=== PATIENT | female | born 1990 | race Caucasian/White ===

== ENCOUNTER 2023-03-29 10:36 | Outpatient (AMB) | payer OTHER, MEDICAID, SELFPAY ==
--- NOTE | 2023-03-29 12:18 | MHC.OFFWIV ---
Intake Vital Signs 03/29/23 12:29 Height 5 ft 2 in Weight 216 lb BMI 39.5 BP 122/90 H Blood Pressure Location Lt brachial Position Sitting Pulse 91 Pulse Source Pulse Oximeter Temp 97.7 F Temp Source Temporal Artery Scan Pulse Oximetry (%) 97 Intake Visit Reasons: EP Cough 3 weeks [phone] Intake Note: pt is here today for cough started 3 weeks ago Allergies ibuprofen [IBUPROFEN] Allergy (Intermediate, Unverified 10/27/21 11:23) SWELLING aspirin [ASPIRIN] Allergy (Mild, Unverified 10/27/21 11:23) ANGIOEDEMA, anaphylaxis Aleve Allergy (Unknown, Uncoded 10/27/21 11:23) anaphylaxis Ibuprofen Allergy (Unknown, Uncoded 10/27/21 11:23) anaphylaxis Motrin Allergy (Unknown, Uncoded 10/27/21 11:23) Anaphylaxis NSAIDS Allergy (Unknown, Uncoded 10/27/21 11:23) Swelling Do you need a note to return to daycare/school/sports/work: No HPI HPI Comments History of Present Illness Details Patient presents to the walk-in today for cough for last 3 weeks Patient states she had been working from home, return to work today and they sent her home due to her cough. Patient states cough is productive of white/yellow sputum, worse at night when she lays down Denies fever, chills, shortness of breath, chest pain, nausea, vomiting, sore throat, earache Endorses nasal congestion with postnasal drip Review of Systems Const All systems reviewed & are unremarkable except as noted in HPI and below Physical Exam Vital Signs: Last Vital Signs Temp 97.7 F 03/29/23 12: Pulse 91 03/29/23 12:29 BP 122/90 H 03/29/23 12:29 Pulse Ox 97 03/29/23 12:29 BMI result Body Mass Index 39.5 General: awake, alert, oriented. Answers questions appropriately. Fully engaged in examination. Skin: warm, dry, intact HEENT: TMs intact bilaterally, without erythema or exudate. Posterior pharynx without erythema or exudate. Sclera without icterus or injection. Cardiac: External chest normal in appearance. Respiratory: +cough. LSCTAB. Abdomen: without gross distension. Neurological: Oriented to person, place, time and situation. Thought process intact. Psychiatric: Appropriate mood and affect. Good judgment and insight. Assessment & Plan Assessment & Plan (1) Upper respiratory tract infection: Code(s): J06.9 - Acute upper respiratory infection, unspecified Plan URI with productive cough Benzonatate 100mg po bid as needed Azithromycin as prescribed Patient declines prednisone, did not tolerate in the past Rest, drink plenty of fluids, tylenol as needed. Recommend taking OTC nasal decongestants or flonase to help with post nasal drip. Follow up with pcp or in clinic for any new or worsening symptoms. Go to ER for shortness of breath, chest pain, palpitations, weakness, dizziness. Medications: New benzonatate 100 mg PO BID PRN 20 caps 0RF cough azithromycin For 250 mg dose pack: take 500 mg today (day 1), then 250 mg for 4 days (days 2-5) PO 6 tabs 0RF Coding Level of Care Code Est Pt Level 4 (73524) Diagnoses Upper respiratory tract infection J06.9
[2023-03-29 12:29] VITALS: BP 122/90; PULSE 91; TEMP 36.5; O2SAT 97; BMI 39.5
== END 2023-03-29 13:40 | disposition home or self-care (01) ==
PROVIDERS: Visit Provider Registered Nurse Emergency
DX: J06.9 Acute upper respiratory infection, unspecified (principal)
CPT/HCPCS: 99213

== ENCOUNTER 2023-04-23 11:43 | Outpatient (AMB) | payer OTHER, MEDICAID, SELFPAY ==
--- NOTE | 2023-04-23 11:48 | A.OFFPC_ITS ---
Vital Signs 04/23/23 11:50 Height 5 ft 2 in Weight 212 lb 8 oz BMI 38.9 BP 110/68 Blood Pressure Location Lt brachial Position Sitting Pulse 82 Pulse Source Pulse Oximeter Pulse Oximetry (%) 99 Oxygen Delivery Method Room Air Intake Visit Reasons: Est Care/Transfer form Skinny/Requesting PE Intake Note: Pt is here to est care [facility] [place] Is last menstrual period known: No Allergies ibuprofen [IBUPROFEN] Allergy (Intermediate, Unverified 04/23/23 12:02) SWELLING aspirin [ASPIRIN] Allergy (Mild, Unverified 04/23/23 12:02) ANGIOEDEMA, anaphylaxis Aleve Allergy (Unknown, Uncoded 04/23/23 12:02) anaphylaxis Ibuprofen Allergy (Unknown, Uncoded 04/23/23 12:02) anaphylaxis Motrin Allergy (Unknown, Uncoded 04/23/23 12:02) Anaphylaxis NSAIDS Allergy (Unknown, Uncoded 04/23/23 12:02) Swelling Medication List - Last Reconciled 04/23/23 by LADONNA Navarro No Known Home Meds Tobacco use date assessed: 04/23/23 Dental Screening Dental Screen Date: 04/23/23 Did you have a dental visit in the last 12 months?: Yes Did you have a dental problem in the last 6 months where you did not have access to dental care?: No Was dental information given to patient?: Patient has dentist HPI HPI Comments History of Present Illness Details Patient is a 33-year-old female here to establish care. She has a past medical history significant for migraines. She states that she has migraines 2-3 times per week in the often interrupts her daily living. She states in the past she used Fioricet with good effect. Denies nausea vomiting, but does have photophobia. Denies shortness of Breath or chest pain. Patient declined influenza immunization and booster immunization. up-to-date on other immunizations. [facility] for Pap [facility]. Will get results [facility] Surgical History H/O: Family History Mother Diabetes Cervical cancer Maternal Grandmother Diabetes Social History Housing: Other Patient Tobacco Use Status: Never used Tobacco e-Cigarette/Vaping Use: Never Used Second Hand Smoke Exposure: No service: No Current occupational status: employed Current occupation: [employer] Current occupational exposures/hazards: No Cognitive needs: No Hearing needs: No Vision needs: No Questionnaire PHQ-9 Over the last 2 weeks, how often have you been bothered by any of the following problems? 1. Little interest or pleasure in doing things: several days 2. Feeling down, depressed, or hopeless: several days 3. Trouble falling or staying asleep, or sleeping too much: several days 4. Feeling tired or having little energy: several days 5. Poor appetite or overeating: more than half the days 6. Feeling bad about yourself - or that you are a failure or have let yourself or your family down: several days 7. Trouble concentrating on things, such as reading the newspaper or watching television: several days 8. Moving or speaking so slowly that other people could have noticed. Or the opposite - being so fidgety or restless that you have been moving around a lot more than usual: several days 9. Thoughts that you would be better off or of hurting yourself in some way: not at all Total score: 9 Depression Screening Interpretation: Negative Depression Screening Done: Yes 53956 - PHQ-9 Billing: Yes Source: Developed by Drs. Jeremiah Dumont, Jennifer Dunlap, Quoc Costa and colleagues, with an educational darlene from [employer]. Thrive Questionnaire Date Thrive assessed: 04/23/23 I am a: Patient What is your living situation today?: I have a steady place to live Within the past 12 months, did the food you bought not last and you didn't have the money to get more?: Never true Within the past 12 months, did you worry whether your food would run out before you got money to buy more?: Never true Do you have trouble paying for medicines?: No Do you have trouble getting transportation to medical appointments?: No Do you have trouble paying your heating and electricity bill?: No Do you have trouble taking care of your child, family member or friend?: No Do you have trouble with day-to-day activities such as bathing, preparing meals, shopping, managing finances, etc.?: No Are you currently unemployed and looking for a job?: No Are you interested in more education?: No THRIVE Score: 0 AUDIT C Alcohol Use Questionnaire (AUDIT-C) 1. How often do you have a drink containing alcohol?: Monthly or less 2. How many drinks containing alcohol do you have on a typical day when you are drinking?: 1 or 2 3. How often do you have six or more drinks on one occasion?: Never Total Score: 1 SUKHDEEP-7 AMB Questionnaire SUKHDEEP-7 Date SUKHDEEP - 7 assessed: 04/23/23 Feeling nervous, anxious, or on edge: 3 = Nearly every day Not being able to stop or control worryin = More than half the days Worrying too much about different things: 2 = More than half the days Trouble relaxin = More than half the days Being so restless that it is hard to sit still: 2 = More than half the days Becoming easily annoyed or irritable: 3 = Nearly every day Feeling afraid as if something awful might happen: 0 = Not at all Total SUKHDEEP-7 score (0-4 normal; 5-9 mild; 10-14 moderate; 15-21 severe): 14 Source: Developed by Drs. Jeremiah Dumont, Jennifer Dunlap, Quoc Costa and colleagues, with an educational darlene from [employer]. SUKHDEEP-7 Assessment Billing SUKHEDEP-7 Assessment Tool: SUKHDEEP-7 Assessment 84983 Review of Systems Const Details: Constitutional : No Weight loss, No Fever, No Chills, No Fatigue, No Malaise ENT/Mouth : No sore throat, No Rhinorrhea Eyes: No Eye Pain, No Swelling, No Redness Cardiovascular : No Chest Pain, No SOB, No Dyspnea on Exertion, No Orthopnea, No Edema, No Palpitations Respiratory : No Cough, No Sputum, No Wheezing Gastrointestinal : No Nausea, No Vomiting, No Diarrhea, No Constipation, No abdominal Pain, No Hematochezia, No Melena Genitourinary : No Dysuria, No Urinary Frequency, No Hematuria, Musculoskeletal : No joint pain, No Myalgias, No Joint Swelling Skin : No Skin Lesions, No rash Neuro : No Weakness, No Numbness, No Dizziness, Admits frequent migraines. Psych : No Anxiety/Panic, No Depression Heme/Lymph: No Bruising, No Bleeding,No Lymphadenopathy Endocrine : No Polyuria, No Polydipsia All other systems reviewed and are negative Physical exam (Primary Care) Vital Signs: Last Vital Signs Pulse 82 04/23/23 11:50 BP 110/68 04/23/23 11:50 Pulse Ox 99 04/23/23 11:50 Oxygen Delivery Method Room Air 04/23/23 11:50 BMI result Body Mass Index 38.9 Tobacco/Smoking Status: Tobacco use Status Tobacco use date assessed 04/23/23 04/23/23 11:58 Patient Tobacco Use Status Never used Tobacco 04/23/23 11:58 e-Cigarette/Vaping Use Never Used 04/23/23 11:58 Depression Screening Interpretation: Negative Const Other: Appearance: Alert.? Oriented X3.? No acute distress.? Head: Normocephalic, atraumatic, Eyes: Pupils equal, round and reactive to light.? Neck: Normal inspection.? Neck supple.? CVS: Normal heart rate and rhythm.? Pulses normal.? Respiratory: No respiratory distress.? Breath sounds normal.? Neuro: Oriented X 3.? No motor deficit.? No sensory deficit. CN 2-12 intact Assessment and Plan Assessment & Plan (1) Migraines: Comment: Patient has frequent migraines, 2-3 episodes per week. She is not taking any medications. She states she had good success with your set in the past will order. Will also order magnesium supplement as prophylactic treatment. Patient has been instructed to inform the office if symptoms do not improve over the next 2-3 weeks Code(s): G43.909 - Migraine, unspecified, not intractable, without status migrainosus Qualifiers: Migraine type: unspecified Status migrainosus presence: without status migrainosus Intractability: not intractable Qualified Code(s): G43.909 - Migraine, unspecified, not intractable, without status migrainosus Plan: Patient has follow-up appointment (2) Insomnia: Comment: Patient states she sometimes has trouble getting to sleep due to busy life schedule not being able to slow down. Will give hydroxyzine to be taken p.r.n. Code(s): G47.00 - Insomnia, unspecified Qualifiers: Insomnia type: unspecified Qualified Code(s): G47.00 - Insomnia, unspecified (3) Obesity (BMI 30-39.9): Comment: Patient would like to improve on her BMI. Will refer to community nurse navigation for dietary and weight the loss counseling. Code(s): E66.9 - Obesity, unspecified Plan: Will follow-up after community nurse navigation appointment. Plan Patient has physical in 3 months Orders: Orders Lipid Panel Today Z13.220 - Encounter for screening for lipoid disorders UA CC w/rflx Micro + Cult Today Z13.89 - Encounter for screening for other disorder TSH reflex Free T4 Today Z13.29 - Encounter for screening for other suspected endocrine disorder Complete Blood Count Auto Diff Today Z13.0 - Encounter for screening for diseases of the blood and blood-forming organs and certain disorders involving the immune mechanism Hemoglobin A1c Today Z13.1 - Encounter for screening for diabetes mellitus Comprehensive Met. Panel Today Z91.89 - Other specified personal risk factors, not elsewhere classified Magnesium Today G43.909 - Migraine, unspecified, not intractable, without status migrainosus Vitamin D 25-OH (D2 and D3) Today Z13.21 - Encounter for screening for nutritional disorder Vitamin B12 Today Z13.21 - Encounter for screening for nutritional disorder Vitamin B6 Today Z13.21 - Encounter for screening for nutritional disorder Thyroid Peroxidase Antibodies Today Z13.29 - Encounter for screening for other suspected endocrine disorder Referrals Nurse Navigator Referral Z71.3 - Dietary counseling and surveillance Medications: New magnesium oxide 400 mg PO DAILY 90 tabs 0RF hydroxyzine HCl 25 mg PO BEDTIME PRN 30 tabs 0RF insomnia ruhhxcufpz-llgkywykpfhwj-gqpz 50-300-40 mg (Fioricet) 1 cap PO Q6H PRN 30 caps 0RF pain Review Flu Vaccine not done: patient reason Coding Level of Care Code Est Pt Level 3 (67890) Diagnoses Migraine without status migrainosus, not intractable, unspecified migraine type G43.909 Migraine type: unspecified Status migrainosus presence: without status migrainosus Intractability: not intractable Insomnia, unspecified type G47.00 Insomnia type: unspecified Obesity (BMI 30-39.9) E66.9 Additional Codes SUKHDEEP-7 Assessment Billing - SUKHDEEP-7 Assessment Tool: SUKHDEEP-7 Assessment 33302 ([id number]) Time Spent (min) 30
[2023-04-23 11:50] VITALS: BP 110/68; PULSE 82; O2SAT 99; BMI 38.9
== END 2023-04-23 12:30 | disposition home or self-care (01) ==
PROVIDERS: Visit Provider Nurse Practitioner Primary Care
DX: G43.909 Migraine, unspecified, not intractable, without status migrainosus (principal); G47.00 Insomnia, unspecified; E66.9 Obesity, unspecified; Z68.38 Body mass index [BMI] 38.0-38.9, adult
CPT/HCPCS: 99214

== ENCOUNTER 2023-04-30 07:51 | Outpatient (REF) | payer OTHER, SELFPAY ==
[2023-04-30 11:19] LABS: MANUAL DIFF FLAG NO
[2023-04-30 11:33] LABS: Basophils Percent Auto 0.6 % (0-2); Eosinophils Absolute Auto 0.1 X10*3/uL (0.0-0.4); Eosinophils Percent Auto 1.6 % (0-4); Hematocrit 39.3 % (37.0-47.0); Hemoglobin 12.8 g/dl (12.0-16.0); Imm Gran Abs Auto 0.01 X10*3/uL (0.00-0.03); Imm Gran Pct Auto 0.2 % (0.0-0.4); Lymphocytes Absolute Auto 1.9 X10*3/uL (1.2-4.9); Lymphocytes Percent Auto 29.6 % (20-40); Mean Corpuscular HGB Conc 32.6 g/dl (31.0-35.0); Mean Corpuscular Hemoglobin 29.4 pg (27.0-33.0); Mean Corpuscular Volume 90.3 fL (80.0-98.0); Mean Platelet Volume 11.2 fL (9.4-12.3); Monocytes Absolute Auto 0.4 X10*3/uL (0.1-1.2); Monocytes Percent Auto 6.6 % (2-11); Neutrophils Absolute Auto 3.8 x10*3/uL (2.0-8.3); Neutrophils Percent Auto 61.4 % (45-73); Platelet Count 272 X10*3/uL (160-400); Red Blood Count 4.35 X10*6/uL (4.20-5.50); Red Cell Distribution Width 13.4 % (11.0-16.0); White Blood Count 6.2 X10*3/uL (4.8-10.8)
[2023-04-30 11:42] LABS: Estimated Average Glucose 111 mg/dL; Hemoglobin A1c % 5.5 % (<6.0)
[2023-04-30 11:44] LABS: Alanine Aminotransferase 23 U/L (0-31); Albumin Level 4.1 g/dL (3.5-5.0); Alkaline Phosphatase 53 U/L (39-117); Anion Gap 11 (12-20); Aspartate Amino Transferase 15 U/L (5-31); Bilirubin Total 0.7 mg/dL (0.0-1.0); Blood Urea Nitrogen 12 mg/dL (9-16); Calcium 9.4 mg/dL (8.4-10.2); Carbon Dioxide 30 mmol/L (22-29); Chloride 105 mmol/L (96-108); Cholesterol 167 mg/dL (<200); Estimated Glomerular Filt Rate > 60; Glucose Random 103 mg/dL (60-115); HDL Cholesterol 53 mg/dL (>40); LDL Cholesterol Calculated 96 mg/dL (<100); Magnesium 1.7 mg/dL (1.6-2.6); Potassium 3.9 mmol/L (3.3-5.1); Sodium 142 mmol/L (135-145); Total Protein 7.5 g/dL (6.5-8.0); Triglycerides 93 mg/dL (<150)
[2023-04-30 11:58] LABS: Appearance Urine Cloudy; Color Urine Dark Yellow; Glucose Urine UA Negative (Negative); Leukocyte Esterase Urine Negative (Negative); Nitrite Urine Negative (Negative); Specific Gravity - Urine >= 1.030 (1.005-1.025); UMIC TRIGGER UACC YES; Urine Blood Trace (Negative); Urine Ketones Negative (Negative); Urine Protein Negative (Neg-Trace)
[2023-04-30 11:59] LABS: Vitamin B12 1407 pg/mL (200-900)
[2023-04-30 12:05] LABS: Bacteria Urine 2+ (None Seen); Hyaline Casts Urine 0-2 /LPF (0-2); WBC Urine 0-5 /HPF (0-5)
[2023-04-30 12:08] LABS: TSH reflex Free T4 1.32 uIU/mL (0.32-4.0)
[2023-05-03 12:52] LABS: Thyroid Peroxidase Antibodies <1 IU/mL (<9)
[2023-05-04 17:47] LABS: Vitamin D 25-OH, D2 <4 ng/mL; Vitamin D 25-OH, D3 19 ng/mL; Vitamin D 25-OH, Total 19 ng/mL (30-100)
[2023-05-05 14:13] LABS: Vitamin B6 48.6 ng/mL (2.1-21.7)
== END 2023-04-30 07:52 | disposition home or self-care (01) ==
LOC: HO.HMGCLDS 07:51
PROVIDERS: PCP Nurse Practitioner Primary Care; Visit Provider Nurse Practitioner Primary Care
DX: G43.909 Migraine, unspecified, not intractable, without status migrainosus (principal); Z13.29 Encounter for screening for other suspected endocrine disorder; Z13.0 Encounter for screening for diseases of the blood and blood-forming organs and certain disorders involving the immune mechanism; Z13.1 Encounter for screening for diabetes mellitus; Z13.220 Encounter for screening for lipoid disorders; Z91.89 Other specified personal risk factors, not elsewhere classified; Z13.21 Encounter for screening for nutritional disorder; Z13.89 Encounter for screening for other disorder
CPT/HCPCS: 36415; 80053; 80061; 81001; 82306; 82607; 83036; 83735; 84207; 84443; 85025; 86376

== ENCOUNTER 2024-02-08 10:10 | Outpatient (AMB) | payer OTHER, SELFPAY ==
--- NOTE | 2024-02-08 11:04 | AM.OFFWIN_ITS ---
Intake Vital Signs 02/08/24 11:05 Height 5 ft 2 in Weight 207 lb 4 oz BMI 37.9 BP 120/78 Blood Pressure Location Lt brachial Position Sitting Pulse 121 H Pulse Source Pulse Oximeter Temp 97.6 F Temp Source Oral Pulse Oximetry (%) 95 Oxygen Delivery Method Room Air Intake Visit Reasons: EP Migraine/throat Intake Note: Patient here for migraine and sore throat, chills and body aches which started about 2 days ago. Patient Tobacco Use Status: Never used Tobacco Allergies ibuprofen [IBUPROFEN] Allergy (Intermediate, Unverified 02/08/24 11:12) SWELLING aspirin [ASPIRIN] Allergy (Mild, Unverified 02/08/24 11:12) ANGIOEDEMA, anaphylaxis Aleve Allergy (Unknown, Uncoded 02/08/24 11:12) anaphylaxis Ibuprofen Allergy (Unknown, Uncoded 02/08/24 11:12) anaphylaxis Motrin Allergy (Unknown, Uncoded 02/08/24 11:12) Anaphylaxis NSAIDS Allergy (Unknown, Uncoded 02/08/24 11:12) Swelling Do you need a note to return to daycare/school/sports/work: No HPI HPI Comments History of Present Illness Details History The patient is a 33-year-old female presenting with symptoms of illness, including sore throat, migraine, and possible strep throat. She reports waking up feeling sick today, with a migraine that began early the previous day. The migraine is typically managed with prescription medication due to her NSAID allergy, but she currently lacks access to her prescribed medication, Fioricet. The patient also experiences sore throat, ear pain, and generalized body aches. She reports feeling extremely cold but is uncertain about the presence of a fever. There is a noted absence of cough, and she denies any other sick contacts at home. The patient states she is also prone to yeast infections following antibiotic therapy. There is a specific sensitivity to antibiotics that has resulted in recurrent yeast infections for which she has previously taken fluconazole. Physical Exam General: Cooperative, healthy appearing, comfortable and no acute distress Orientation/consciousness: Patient oriented x3 Limitations: No limitations Head: Normal to inspection Ears: Hearing grossly normal bilaterally, external ears normal and TM's erythematous bilaterally Nose: Normal external nose present, Normal nares present and No nasal discharge present Face and sinus: Normal facial exam and Yes sinuses nontender Mouth: Normal oral and palatal mucosa present and moist mucous membranes Throat: Yes tonsils normal, Yes uvula midline. Posterior oropharynx erythema with exudates Eyes: Appearance normal, both eyes and all related structures, but patient reports eye pain Neck: Normal visual inspection Respiratory: Normal respiratory effort, able to speak in complete sentences, no respiratory distress, not tachypneic, no tripod positioning and no use of accessory muscles Skin: No rashes or lesions noted Neuro: Patient oriented x3 Extremities: Normal to inspection and Yes no clubbing, cyanosis or edema PFSH Surgical History H/O: Family History Mother Diabetes Cervical cancer Maternal Grandmother Diabetes Social History Housing: Other Patient Tobacco Use Status: Never used Tobacco e-Cigarette/Vaping Use: Never Used Second Hand Smoke Exposure: No service: No Current occupational status: employed Current occupation: [employer] Current occupational exposures/hazards: No Cognitive needs: No Hearing needs: No Vision needs: No Review of Systems Const All systems reviewed & are unremarkable except as noted in HPI and below Physical Exam Vital Signs: Last Vital Signs Temp 97.6 F 02/08/24 11:05 Pulse 121 H 02/08/24 11:05 BP 120/78 02/08/24 11:05 Pulse Ox 95 02/08/24 11:05 Oxygen Delivery Method Room Air 02/08/24 11:05 BMI result Body Mass Index 37.9 Assessment & Plan Assessment & Plan (1) Strep pharyngitis: Code(s): J02.0 - Streptococcal pharyngitis Plan: Plan 1. Streptococcal Pharyngitis: Rapid strep positive. Prescribe Augmentin amoxicillin/clavulanate to be taken orally twice daily for seven days to treat the streptococcal pharyngitis. Recommend the use of throat numbing spray for symptomatic relief, with the consideration of popsicles for soothing the throat, ensuring adequate electrolyte intake to prevent dehydration. 2. Migraine: Refill Fioricet to manage acute migraine symptoms. The prescription refill was sent to the pharmacy. 3. Recurrent Yeast Infection: sent diflucan rx The patient is advised to stay home from work until completing two days of antibiotic therapy due to the contagious nature of the condition. All prescripti ons will be forwarded to the pharmacy for processing. Patient was informed and verbally consented to the use of an ambient scribe for clinic note documentation during this visit Medications: New fluconazole may repeat second dose 72 hrs after first dose if symptoms persist 150 mg PO Q3D 2 tabs 0RF 2 days amoxicillin-pot clavulanate 875-125 mg 1 tab PO Q12H 14 tabs 0RF Refilled twddkaflbc-bbqgowdetshbr-pcei 50-300-40 mg (Fioricet) 1 cap PO Q6H PRN 30 caps 0RF pain Coding Level of Care Code Est Pt Level 4 (21712) Diagnoses Strep pharyngitis J02.0
[2024-02-08 11:05] VITALS: BP 120/78; PULSE 121; TEMP 36.4; O2SAT 95; BMI 37.9
--- OUTSIDE RECORDS SUMMARY | 2024-02-09 19:45 | XMS_ITS ---
Author Name [facility] Organization Unknown History of Medication Use Medication Directions Dispensed Refills Start Date End Date Stat methylPREDNISolone (MEDROL DOSEPAK) 4 MG tablet follow package directions 10/15/2023 active benzonatate (TESSALON) 200 MG capsule Take 1 capsule (200 mg total) by mouth 3 (three) times a day as needed for cough. 12/16/2021 active amoxicillin (AMOXIL) 875 MG tablet Take 1 tablet (875 mg total) by mouth 2 (two) times a day. 12/16/2021 active No Medications Taken No Medications Taken 01/22/2023 active methylPREDNISolone (MEDROL DOSEPAK) 4 MG tablet follow package directions 12/16/2021 active lidocaine (XYLOCAINE) 2 % solution Take 5 mL by mouth 4 (four) times a day as needed for mild pain. 12/16/2021 active phentermine 30 MG capsule Take 30 mg by mouth every morning before breakfast. 12/16/2021 active butalbital-acetaminophen -caffeine (FioriCET, ESGIC) 50-325-40 mg tablet Take 1 tablet by mouth 4 times daily (every 6 hours) as needed for headaches. Max: 6 capsules/tablets in 24 hours 12/16/2021 active Medrol 4 MG Oral Tablet Therapy Pack Medrol 4 MG Oral Tablet Therapy Pack QTY: 1 each Days: 6 Refills: 0 Written: 02/10/23 Patient Instructions: take as directed on the package 02/12/2023 active mometasone (NASONEX) 50 MCG/ACT nasal spray 2 sprays into each nostril daily. 12/16/2021 active Problems Problem Status Onset Date Problem Type Date of Resoluti on Source Encounter for screening laboratory testing for COVID-19 virus active [facility]
== END 2024-02-08 11:35 | disposition home or self-care (01) ==
PROVIDERS: PCP Nurse Practitioner Family; Visit Provider Physician Assistant
DX: Z13.9 Encounter for screening, unspecified (principal); J02.0 Streptococcal pharyngitis

== ENCOUNTER → 2024-02-08 10:10 | Outpatient (BNVA) | payer OTHER, SELFPAY | PROVIDERS: PCP Nurse Practitioner Family; Visit Provider Physician Assistant | DX: J02.0 Streptococcal pharyngitis (principal); G43.909 Migraine, unspecified, not intractable, without status migrainosus; B37.9 Candidiasis, unspecified | CPT/HCPCS: 87880 ==